=== PATIENT | male | born 1940 | race Caucasian/White ===

== ENCOUNTER → 2018-10-06 | Day surgery (SDC) | payer MEDICARE ==
[~2018-10-06] MED LIST: ASPI81TA50 PO; CAPT12.52 PO; CARV12.5 PO; HYDROmorphone 2 MG/ML VIAL IV PRN; IV RINGERS,LACTATED 1000ML 1,000 ML IV SCH; LIDOCAINE 1% PF 2 ML VIAL. ID PRN; MORPHINE SULFATE 4 MG/ML VIAL. IV PRN; ONDANSETRON PF 4 MG/2 ML VIAL. IV PRN; PANT40TA77 PO; PROCHLORPERAZINE 10 MG/2 ML VIAL. IV PRN; PROPOFOL 20 ML IV ONE; SIMV40TA3 PO; fentaNYL PF VIAL 100 MCG/2 ML VIAL IV PRN
[2018-10-06 09:17] VITALS: BP 136/63
--- NOTE | 2018-10-07 18:08 | PATHOLOGY ---
[facility] Accession Number: [id number] . 01 Material submitted: . PART A: GASTRIC POLYP BIOPSY PART B: BIOPSY AT 38CM ESOPHAGUS PART C: BIOPSY AT 36CM ESOPHAGUS PART D: BIOPSY AT 35CM ESOPHAGUS . 01 Clinical history: . History Ying's, hiatal hernia, gastric polyp . 02 Diagnosis: A. Gastric biopsies, gastric polyp: - Fundic gland polyp. . B. 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 . C. Esophageal biopsies, 36 cm: - Segments of columnar-lined mucosa showing chronic inflammation and intestinal metaplasia with goblet cells consistent with Ying's change, and few small segments of squamous esophageal mucosa. . D. Esophageal biopsies, 35 cm: - Segment of columnar-lined mucosa showing chronic inflammation and intestinal metaplasia with goblet cells consistent with Ying's change, and segment of squamous esophageal mucosa. . (JPM/at;10/07/2018) QTA/10/07/2018 . 02 Comment: Sections of the gastric biopsy reveal a fundic gland polyp. There are no adenomatous changes or evidence of malignancy. Sections of the esophageal biopsies at 38 cm, 36 cm, and 35 cm appear similar in that they primarily reveal segments of columnar-lined mucosa showing mild to moderate chronic inflammation and intestinal metaplasia with goblet cells consistent with Ying's change. There is no dysplasia or evidence of malignancy. . (JPM/at;10/07/2018) . 02 Electronically signed: . Desmond Collazo MD, Pathologist NPI- [id number] . 01 Gross description: . A. The specimen is received in formalin, labeled "Rohit Cisneros, BX gastric polyp", are two irregular fragments of araujo tissue, 0.1 cm and 0.3 cm in greatest dimension, entirely submitted in A1. . B. The specimen is received in formalin, labeled "Rohit Cisneros BX at 38 cm esophagus", are three araujo-garrett irregular fragment soft tissues measuring 0.4 x 0.2 x 0.1 cm in aggregate, entirely submitted in B1. . C. The specimen is received in formalin, labeled "Rohit Cisneros BX at 36 cm esophagus", are three araujo-garrett irregular fragments of tissue measuring 0.7 x 0.3 x 0.1 cm in aggregate, entirely submitted in C1. . D. The specimen is received in formalin, labeled "Rohit Cisneros BX at 35 cm esophagus", is a araujo-garrett irregular fragment measuring 0.4 cm in greatest dimension, entirely submitted in D1. (SWS; 10/06/2018) SHS/SHS . 02 Pathologist provided ICD-10: K31.7, K20.9, K22.70 . 02 CPT . 471146, 452970, 033008, [id number] Specimen Comment: A courtesy copy of this report has been sent to Specimen Comment: [phone], . Specimen Comment: Report sent to / DR FINE Specimen Comment: A duplicate report has been generated due to demographic updates. Performed at: 01 [facility] [address] [facility] [address], [place] [id number] MD Aries Bang MD Phone: [phone] Performed at: 02 [facility] [address], [place] [id number] MD Desmond Collazo MD Phone: [phone]
== END | disposition home or self-care (01) ==
LOC: ENDOS 07:14
PROVIDERS: ATTEND Internal Medicine
DX: K31.7 Polyp of stomach and duodenum (principal); K44.9 Diaphragmatic hernia without obstruction or gangrene; K31.1 Adult hypertrophic pyloric stenosis; K22.70 Barrett's esophagus without dysplasia; K21.0 Gastro-esophageal reflux disease with esophagitis; I25.5 Ischemic cardiomyopathy; Z88.0 Allergy status to penicillin; E78.5 Hyperlipidemia, unspecified; I25.10 Atherosclerotic heart disease of native coronary artery without angina pectoris; Z95.1 Presence of aortocoronary bypass graft; Z95.810 Presence of automatic (implantable) cardiac defibrillator; Z86.010 Personal history of colon polyps; Z83.79 Family history of other diseases of the digestive system; Z82.49 Family history of ischemic heart disease and other diseases of the circulatory system; Z79.899 Other long term (current) drug therapy; Z79.82 Long term (current) use of aspirin; Z85.46 Personal history of malignant neoplasm of prostate; Z98.890 Other specified postprocedural states; I13.0 Hypertensive heart and chronic kidney disease with heart failure and stage 1 through stage 4 chronic kidney disease, or unspecified chronic kidney disease; N18.9 Chronic kidney disease, unspecified; I50.9 Heart failure, unspecified
CPT/HCPCS: 43239; 88305; J2704

== ENCOUNTER 2018-11-07 20:57 | Emergency (ER) | payer MEDICARE ==
[~2018-11-07] VITALS: Ht 182.9 cm; Wt 73.0 kg
[~2018-11-07 20:57] MED LIST changes: -HYDROmorphone 2 MG/ML VIAL IV PRN; -IV RINGERS,LACTATED 1000ML 1,000 ML IV SCH; -LIDOCAINE 1% PF 2 ML VIAL. ID PRN; -MORPHINE SULFATE 4 MG/ML VIAL. IV PRN; -ONDANSETRON PF 4 MG/2 ML VIAL. IV PRN; +PANT40TA5 PO; -PANT40TA77 PO; -PROCHLORPERAZINE 10 MG/2 ML VIAL. IV PRN; -PROPOFOL 20 ML IV ONE; -fentaNYL PF VIAL 100 MCG/2 ML VIAL IV PRN
[2018-11-07 21:24] VITALS: BP 166/85
--- NOTE | 2018-11-07 21:47 | PHYS DOC ---
Past Medical History Past Medical History: GERD Additional Information: Nonsmoker Alcohol Use: None Drug Use: None Adult General Chief Complaint Chief Complaint: FACE PROBLEM HPI HPI 78 y/o male presents with report of continued facial rash primarily to bilateral cheeks which started . Patient was seen by PCP and started on prednisone. Reports rash started shortly after taking the medication. Reports was seen again by PCP on Friday and told to discontinue the steroid and to take benadryl. Reports today the symptoms have continued. Reports redness and swelling to cheeks. Reports he did last take a benadryl at 1400 today with some improvement. Denies tongue or lip swelling or difficulty breathing or swallowing. Denies other known exposure. Review of Systems Review of Systems Constitutional: Denies fever or chills [] Eyes: Denies change in visual acuity, redness, or eye pain [] HENT: Denies nasal congestion or sore throat [] Respiratory: Denies cough or shortness of breath [] Cardiovascular: Denies chest pain or palpitations GI: Denies abdominal pain, nausea, vomiting, or diarrhea [] : Denies dysuria or hematuria [] Musculoskeletal: Denies back pain or joint pain [] Integument: Reports facial rash and swelling Neurologic: Denies headache, focal weakness or sensory changes [] Complete systems were reviewed and found to be within normal limits, except as documented in this note. Allergies Allergies Allergies Coded Allergies Type Severity Reaction Last Updated Verified Penicillins Allergy Intermediate Itching 10/06/18 Yes Physical Exam Physical Exam Constitutional: Well developed, well nourished, no acute distress, non-toxic appearance. [] HENT: Normocephalic, atraumatic,oropharynx moist, no lip or tongue swelling Eyes: Conjunctiva normal, no discharge. [] Neck: Normal range of motion, no tenderness, supple Cardiovascular: Heart rate regular rhythm, no murmur [] Lungs & Thorax: Bilateral breath sounds clear to auscultation [] Skin: Warm, dry, mild erythema to bilateral cheeks, nontender to palpation Neurologic: Alert and oriented X 3, , no focal deficits noted. [] Psychologic: Affect normal, judgement normal, mood normal. [] Current Patient Data Vital Signs Vital Signs Date Time Temp Pulse Resp B/P (MAP) Pulse Ox O2 Delivery O2 Flow Rate FiO2 3/2/19 21:24 98.0 85 16 166/85 (112) 98 Room Air 98.0 EKG EKG [] Radiology/Procedures Radiology/Procedures [] Course & Med Decision Making Course & Med Decision Making Patient presents with mild erythematous rash to bilateral cheeks which was thought to initially be secondary to recent steroid. Patient has since discontinued medication and started to take benadryl with some improvement. NO airway compromise noted. Patient stable. Advised to continue benadryl as needed and use skin protectant such as Aquaphor. Patient stable for discharge home with outpatient follow-up with PCP. Discussed findings and plan with patient, who acknowledges understanding and agreement. Dragon Disclaimer Dragon Disclaimer This electronic medical record was generated, in whole or in part, using a voice recognition dictation system. Departure Departure Impression: Primary Impression: Rash of face Disposition: 01 HOME, SELF-CARE Condition: STABLE Referrals: MARIO FINE MD (PCP) Additional Instructions: Continue to use over the counter Benadryl. Continue to hold the steroid. May use over the counter Aquaphor barrier cream to soothe and protect skin. MARIO CHAPARRO DO Nov 07, 2018 21:47
== END 2018-11-07 22:30 | disposition home or self-care (01) ==
LOC: ER 20:57
DX: R21 Rash and other nonspecific skin eruption (principal); K21.9 Gastro-esophageal reflux disease without esophagitis; Z88.0 Allergy status to penicillin
CPT/HCPCS: 99281